=== PATIENT | female | born 1965 ===

== ENCOUNTER 2018-07-25 17:14 | Outpatient (REF) | payer BC, SELFPAY ==
[2018-07-25 21:22] LABS: ALT 19 U/L (12-78); AST 19 U/L (15-37); Albumin 4.5 g/dL (3.4-5.0); Alkaline Phosphatase 62 U/L (46-116); Anion Gap 10.1 mmol/L (3-11); BUN 14 mg/dL (7-18); Bilirubin, Total 0.3 mg/dL (0.2-1.0); CO2 28.9 mmol/L (21.0-32.0); CREATININE 0.65 mg/dL (0.55-1.02); Calcium 9.7 mg/dL (8.5-10.1); Chloride 103 mmol/L (98-107); Cholesterol 229 mg/dL (50-200); Glucose 99 mg/dL (70-100); HDL Cholesterol 89 mg/dL (40-60); LDL CHOLESTEROL 113 mg/dL (<100); Sodium 142 mmol/L (136-145); TSH 3.09 uIU/mL (0.358-3.74); Total Protein 8.8 g/dL (6.4-8.2); Triglyceride 80 mg/dL (30-150)
== END 2018-07-25 17:34 ==
LOC: NCHCN 17:14
PROVIDERS: Visit Provider Registered Nurse
DX: Z00.00 Encounter for general adult medical examination without abnormal findings (principal); L65.9 Nonscarring hair loss, unspecified; F10.10 Alcohol abuse, uncomplicated
CPT/HCPCS: 80053; 80061; 83721; 84443